=== PATIENT | male | born 1965 | race Caucasian/White ===

== ENCOUNTER 2018-09-08 18:32 | Emergency (ER) | payer BC ==
[2018-09-08] MEDS ORDERED: ONDANSETRON 4 MG/2 ML VIAL ONE (19:33)
[2018-09-08] MEDS ORDERED: DICYCLOMINE HCL 10 MG CAP ONE (19:33)
[2018-09-08] MEDS ORDERED: MORPHINE 4 MG/ML SYR ONE ×2 (19:33→21:59)
[2018-09-08] MEDS ORDERED: NA CHLORIDE 0.9% 1,000 ML ONE (19:33)
[2018-09-08 19:58] LABS: Absolute Lymphocytes (CBC) 1.3 K/uL (0.7-4.9); Absolute Neutrophil 6.2 K/uL (1.8-8.0); Basophils % 0.7 % (0-1.3); Eosinophils % 2.7 % (0-4.4); Hematocrit 51.9 % (39.6-49.0); Lymphocytes % 15.1 % (15.3-44.8); MPV 7.7 fL (7.6-11.3); Monocytes % 11.3 % (3.3-12.3); RBC Red Blood Cell Count 6.26 M/uL (4.33-5.43)
[2018-09-08 21:51] LABS: ALT/SGPT 32 U/L (12-78); AST/SGOT 18 U/L (15-37); Albumin 4.1 g/dL (3.4-5.0); Alkaline Phosphatase 84 U/L (45-117); BUN Blood Urea Nitrogen 18 mg/dL (7-18); Bicarbonate 29 mmol/L (21-32); Bilirubin Direct 0.1 mg/dL (0-0.2); Bilirubin Total 0.5 mg/dL (0.2-1.0); Glucose Level 167 mg/dL (74-106); Lipase 129 U/L (73-393); Potassium 4.6 mmol/L (3.5-5.1); Protein, Total 7.6 g/dL (6.4-8.2); Sodium Level 139 mmol/L (136-145)
--- NOTE | 2018-09-09 01:04 | ER ---
Nurse's Notes [facility] Name: Dayne Stevenson Age: 53 yrs Sex: Male : 1965 Arrival Date: 09/08/2018 Time: 18:35 Bed 18 Private MD: Eyad White S Diagnosis: Diarrhea, unspecified;Lower abdominal pain, unspecified Presentation: 09/08 18:41 Presenting complaint: Patient states: I have been having left sided abd pain and la1 diarrhea for since but I have occasionally I have been "cold sweats" and I was getting lightheaded when I was having diarrhea. Transition of care: patient was not received from another setting of care. Onset of symptoms was September 08, 2018. Risk Assessment: Do you want to hurt yourself or someone else? Patient reports no desire to harm self or others. Initial Sepsis Screen: Does the patient meet any 2 criteria? No. Patient's initial sepsis screen is negative. Does the patient have a suspected source of infection? No. Patient's initial sepsis screen is negative. Care prior to arrival: None. 18:41 Method Of Arrival: Ambulatory la1 18:41 Acuity: BOB 3 la1 Historical: - Allergies: 18:43 No Known Allergies; la1 - PMHx: 18:43 "enlarged artery"; Depression; Hypertension; la1 - Immunization history:: Adult Immunizations up to date. - Social history:: Smoking status: Patient/guardian denies using tobacco. - Ebola Screening: : No symptoms or risks identified at this time. Screenin:19 Abuse screen: Denies threats or abuse. Denies injuries from another. Nutritional rr5 screening: No deficits noted. Tuberculosis screening: No symptoms or risk factors identified. Fall Risk IV access (20 points). Total Farrell Fall Scale indicates No Risk (0-24 pts). Assessment: 19:00 General: Appears in no apparent distress. comfortable, Behavior is calm, cooperative, rr5 appropriate for age. Pain: Complains of pain in lower abdomen Pain does not radiate. Pain currently is 6 out of 10 on a pain scale. Quality of pain is described as aching, Pain began gradually, Is intermittent. Neuro: Level of Consciousness is awake, alert, obeys commands, Oriented to person, place, time, situation, Appropriate for age Reports episodes of light headedness. Cardiovascular: Capillary refill < 3 seconds Patient's skin is warm and dry. Respiratory: Airway is patent Respiratory effort is even, unlabored, Respiratory pattern is regular, symmetrical. GI: Bowel sounds present X 4 quads. Abd is soft and non tender Reports lower abdominal pain, diarrhea. : No signs and/or symptoms were reported regarding the genitourinary system. EENT: No signs and/or symptoms were reported regarding the EENT system. Derm: Skin is intact, Skin temperature is warm. Musculoskeletal: Capillary refill < 3 seconds, Range of motion: intact in all extremities. 20:00 Reassessment: Patient appears in no apparent distress at this time. No changes from rr5 previously documented assessment. Patient is alert, oriented x 3, equal unlabored respirations, skin warm/dry/pink. 21:00 Reassessment: Patient appears in no apparent distress at this time. Patient is alert, rr5 oriented x 3, equal unlabored respirations, skin warm/dry/pink. awaiting for laboratory reports. Patient states symptoms have improved. 21:40 Reassessment: Patient appears in no apparent distress at this time. Patient and/or rr5 family updated on plan of care and expected duration. Pain level reassessed. Patient is alert, oriented x 3, equal unlabored respirations, skin warm/dry/pink. complaining of back pain. ED provider aware with order made and carried out. Patient states symptoms have improved. 23:50 Reassessment: Patient appears in no apparent distress at this time. Patient is alert, rr5 oriented x 3, equal unlabored respirations, skin warm/dry/pink. awaiting for CT scan report Patient states feeling better. Patient states symptoms have improved. 09/09 00:50 Reassessment: Patient appears in no apparent distress at this time. no complaints made. rr5 Patient states feeling better. Patient states symptoms have improved. 01:49 Reassessment: Patient appears in no apparent distress at this time. Patient and/or rr5 family updated on plan of care and expected duration. Pain level reassessed. Patient is alert, oriented x 3, equal unlabored respirations, skin warm/dry/pink. discharge instruction given and explained without complaints made. Patient denies pain at this time. Patient states feeling better. Patient states symptoms have improved. Reassessment: Patient appears in no apparent distress at this time. Patient is alert, oriented x 3, equal unlabored respirations, skin warm/dry/pink. Vital Signs: 09/08 18:43 BP 154 / 92; Pulse 85; Resp 18; Temp 97.4; Pulse Ox 98% on R/A; Weight 158.76 kg; la1 Height 5 ft. 10 in. (177.80 cm); 19:15 BP 146 / 105; Pulse 82; Resp 16; Pulse Ox 96% ; rr5 20:00 BP 141 / 70; Pulse 90; Resp 17; Pulse Ox 99% ; rr5 21:00 BP 131 / 87; Pulse 85; Resp 19; Pulse Ox 100% ; rr5 22:00 BP 135 / 92; Pulse 95; Resp 19; Temp 98; Pulse Ox 100% ; rr5 23:00 BP 133 / 65; Pulse 90; Resp 17; Pulse Ox 99% ; rr5 09/09 00:00 BP 136 / 79; Pulse 86; Resp 19; Pulse Ox 99% ; rr5 01:15 BP 142 / 70; Pulse 82; Resp 17; Pulse Ox 99% ; rr5 09/08 18:43 Body Mass Index 50.22 (158.76 kg, 177.80 cm) la1 ED Course: 09/08 18:35 Patient arrived in ED. mr 18:35 Eyad White MD is Private Physician. mr 18:43 Triage completed. la1 18:43 Arm band placed on left wrist. la1 18:45 Arnav Davalos PA is PHCP. jmm 18:45 Rodney Sterling MD is Attending Physician. jmm 19:00 Patient has correct armband on for positive identification. Placed in gown. Bed in low rr5 position. Call light in reach. Side rails up X2. 19:29 Jorge Matos, RN is Primary Nurse. rr5 19:40 Inserted saline lock: 20 gauge in right forearm, using aseptic technique. rr5 20:13 Radiology exam delayed due to lab results not completed at this time. (BUN/Creatinine). kw1 22:10 PHCP role handed off by Arnav Davalos PA snw 22:10 Erlinda Garay FNP-C is PHCP. snw 22:19 CT Abd/Pelvis - W/Contrast In Process Unspecified. EDMS 22:23 CT completed. Patient tolerated procedure well. Patient moved back from CT. kw1 09/09 01:02 Eyad White MD is Referral Physician. snw 01:45 No provider procedures requiring assistance completed. IV discontinued, intact, rr5 bleeding controlled, No redness/swelling at site. Pressure dressing applied. Administered Medications: 09/08 19:30 Drug: Bentyl 20 mg Route: PO; rr5 09/09 01:45 Follow up: Response: No adverse reaction rr5 09/08 19:40 Drug: NS 0.9% 1000 ml Route: IV; Rate: 1 bolus; Site: right forearm; rr5 21:00 Follow up: Response: No adverse reaction; IV Status: Completed infusion; IV Intake: rr5 1000ml 19:45 Drug: Zofran 4 mg Route: IVP; Site: right forearm; rr5 09/09 01:45 Follow up: Response: No adverse reaction rr5 09/08 19:47 Drug: morphine 2 mg Route: IVP; Site: right forearm; rr5 09/09 01:45 Follow up: Response: No adverse reaction rr5 09/08 21:55 Drug: morphine 4 mg Route: IVP; Site: right antecubital; rr5 09/09 01:45 Follow up: Response: No adverse reaction rr5 01:10 Drug: Ativan 1 mg Route: PO; rr5 01:45 Follow up: Response: No adverse reaction; Medication administered at discharge. rr5 Intake: 09/08 21:00 IV: 1000ml; Total: 1000ml. rr5 Outcome: 09/09 01:03 Discharge ordered by . snw 01:51 Discharged to home ambulatory. rr5 01:51 Condition: stable 01:51 Discharge instructions given to patient, family, Instructed on discharge instructions, follow up and referral plans. no driving heavy equipment, Demonstrated understanding of instructions, follow-up care, medications, Prescriptions given X 3. 01:52 Patient left the ED. rr5 Signatures: Dispatcher [employer] EDMS Erlinda Garay, [employer]-Arnav Pierce PA PA jmm Rivera, Mary mr Attema, Lee, RN RN [email or web address] Deirdre Ashley kw1 Jorge Matos, RN RN rr5
--- NOTE | 2018-09-09 01:04 | EDPHYS ---
Physician Documentation [facility] Name: Dayne Stevenson Age: 53 yrs Sex: Male : 1965 Arrival Date: 09/08/2018 Time: 18:35 Bed 18 Private MD: Eyad White S ED Physician Rodney Sterling HPI: 09/08 19:16 This 53 yrs old Male presents to ER via Ambulatory with complaints of jmm Abdominal Pain. 19:16 The patient presents with abdominal pain that is diffuse. Onset: The symptoms/episode jmm began/occurred gradually, 3 day(s) ago. Associated signs and symptoms: Pertinent positives: nausea, diarrhea. Modifying factors: The symptoms are alleviated by nothing, the symptoms are aggravated by spicy food, energy drinks. The patient has experienced a previous episode. This is a 53 year old male with a history of htn, that presents to the ED with complaints of abdominal pain, diarrhea beginning approx 3 days ago. Patient states symptoms worsened today. . Historical: - Allergies: 18:43 No Known Allergies; la1 - PMHx: 18:43 "enlarged artery"; Depression; Hypertension; la1 - Immunization history:: Adult Immunizations up to date. - Social history:: Smoking status: Patient/guardian denies using tobacco. - Ebola Screening: : No symptoms or risks identified at this time. ROS: 19:16 Constitutional: Negative for fever, chills, and weight loss, Cardiovascular: Negative jmm for chest pain, palpitations, and edema, Respiratory: Negative for shortness of breath, cough, wheezing, and pleuritic chest pain. 19:16 Abdomen/GI: Positive for abdominal pain, nausea, diarrhea. 19:16 All other systems are negative. Exam: 19:16 Constitutional: This is a well developed, well nourished patient who is awake, alert, jmm and in no acute distress. Head/Face: atraumatic. Eyes: EOMI, no conjunctival erythema appreciated ENT: Moist Mucus Membranes Neck: Trachea midline, Supple Chest/axilla: Normal chest wall appearance and motion. Cardiovascular: Regular rate and rhythm. No edema appreciated Respiratory: Normal respirations, no respiratory distress appreciated 19:16 Abdomen/GI: Inspection: obese Bowel sounds: normal, Palpation: soft, mild abdominal tenderness, in the right upper quadrant, left upper quadrant, right lower quadrant and left lower quadrant. 19:16 Back: ROM is normal. 19:16 Musculoskeletal/extremity: ROM: intact in all extremities. 19:16 Skin: Appearance: Color: normal in color. 19:16 Neuro: Orientation: is normal, Mentation: is normal, Memory: is normal, Gait: is steady. 19:16 Psych: Behavior/mood is pleasant, cooperative. Vital Signs: 18:43 BP 154 / 92; Pulse 85; Resp 18; Temp 97.4; Pulse Ox 98% on R/A; Weight 158.76 kg; la1 Height 5 ft. 10 in. (177.80 cm); 19:15 BP 146 / 105; Pulse 82; Resp 16; Pulse Ox 96% ; rr5 20:00 BP 141 / 70; Pulse 90; Resp 17; Pulse Ox 99% ; rr5 21:00 BP 131 / 87; Pulse 85; Resp 19; Pulse Ox 100% ; rr5 22:00 BP 135 / 92; Pulse 95; Resp 19; Temp 98; Pulse Ox 100% ; rr5 23:00 BP 133 / 65; Pulse 90; Resp 17; Pulse Ox 99% ; rr5 09/09 00:00 BP 136 / 79; Pulse 86; Resp 19; Pulse Ox 99% ; rr5 01:15 BP 142 / 70; Pulse 82; Resp 17; Pulse Ox 99% ; rr5 09/08 18:43 Body Mass Index 50.22 (158.76 kg, 177.80 cm) la1 MDM: 09/08 19:16 Patient medically screened. [facility] 21:57 Data reviewed: vital signs, nurses notes, lab test result(s). Transition of care: After [facility] a detail discussion of the patient's case, care is transferred to Erlinda Garay [facility]. 09/08 19:17 Order name: Basic Metabolic Panel; Complete Time: 21:52 [facility] 09/08 19:17 Order name: CBC with Diff; Complete Time: 20:16 [facility] 09/08 19:17 Order name: Creatinine for Radiology; Complete Time: 21:50 [facility] 09/08 19:17 Order name: Hepatic Function; Complete Time: 21:52 [facility] 09/08 19:17 Order name: Lipase; Complete Time: 21:52 [facility] 09/08 19:19 Order name: CT Abd/Pelvis - W/Contrast [facility] 09/08 19:17 Order name: IV Saline Lock; Complete Time: 19:54 [facility] 09/08 19:17 Order name: Labs collected and sent; Complete Time: 19:54 [facility] Administered Medications: 19:30 Drug: Bentyl 20 mg Route: PO; 5 09/09 01:45 Follow up: Response: No adverse reaction [facility] 09/08 19:40 Drug: NS 0.9% 1000 ml Route: IV; Rate: 1 bolus; Site: right forearm; rr5 21:00 Follow up: Response: No adverse reaction; IV Status: Completed infusion; IV Intake: rr5 1000ml 19:45 Drug: Zofran 4 mg Route: IVP; Site: right forearm; rr5 09/09 01:45 Follow up: Response: No adverse reaction [facility] 09/08 19:47 Drug: morphine 2 mg Route: IVP; Site: right forearm; rr5 09/09 01:45 Follow up: Response: No adverse reaction 5 09/08 21:55 Drug: morphine 4 mg Route: IVP; Site: right antecubital; rr5 09/09 01:45 Follow up: Response: No adverse reaction rr5 01:10 Drug: Ativan 1 mg Route: PO; rr5 01:45 Follow up: Response: No adverse reaction; Medication administered at discharge. rr5 Disposition: 09/09/18 01:03 Discharged to Home. Impression: Diarrhea, unspecified, Lower abdominal pain, unspecified. - Condition is Stable. - Discharge Instructions: Abdominal Pain, Adult, Food Choices to Help Relieve Diarrhea, Adult, Diarrhea, Adult, Hypertension. - Prescriptions for Bentyl 20 mg Oral Tablet - take 1 tablet by ORAL route every 6 hours As needed; 20 tablet. Diclofenac Sodium 75 mg Oral Tablet Sustained Release - take 1 tablet by ORAL route 2 times per day; 30 tablet. Gas- X Ultra-Strength - take 1 unit by ORAL route 3 times per day As needed; 1 box. - Medication Reconciliation Form, Thank You Letter, Antibiotic Education, Prescription Opioid Use form. - Follow up: Eyad White MD; When: 2 - 3 days; Reason: Recheck today's complaints, Continuance of care, Re-evaluation by your physician. Follow up: Emergency Department; When: As needed; Reason: Worsening of condition. Addendum: 09/10/2018 19:59 Co-signature as Attending Physician, Rodney Sterling MD. r n Signatures: Dispatcher [employer] EDSaul Marquez MD MD cha Therrien, Shelly, HEL[employer] CUTTER-C HEL[employer] BRIM CUTTER-Csnw Arnav Davalos PA PA jmm Nieto, Roman, MD MD rn Ani, Gabe, RN RN la1 Jorge Matos RN RN rr5 Corrections: (The following items were deleted from the chart) 09/09 01:52 01:03 09/09/2018 01:03 Discharged to Home. Impression: Diarrhea, unspecified; Lower rr5 abdominal pain, unspecified. Condition is Stable. Forms are Medication Reconciliation Form, Thank You Letter, Antibiotic Education, Prescription Opioid Use. Follow up: Eyad White; When: 2 - 3 days; Reason: Recheck today's complaints, Continuance of care, Re-evaluation by your physician. Follow up: Emergency Department; When: As needed; Reason: Worsening of condition. snw
[2018-09-09] MEDS ORDERED: LORAZEPAM 1 MG TABLET ONE (01:37)
--- NOTE | 2018-09-09 09:15 | RAD REPORT ---
EXAM DESCRIPTION: CTAbdomen Pelvis W Contrast - 09/08/2018 10:19 pm CLINICAL HISTORY: Abdominal pain. abdominal pain, IV ONLY COMPARISON: Abdomen Pelvis W Contrast dated 10/22/2017 TECHNIQUE: Biphasic CT imaging of the abdomen and pelvis was performed with 100 ml non-ionic IV cont rast. All CT scans are performed using dose optimization technique as appropriate and may include automated exposure control or mA/KV adjustment according to patient size. FINDINGS: The lung bases are clear. The liver demonstrates fatty infiltration mild hepatomegaly. The spleen, pancreas, adrenal glands and kidneys are within normal limits. No bowel obstruction, free air, free fluid or abscess. Small fat containing inguinal hernia. The appe ndix is normal. No evidence of significant lymphadenopathy. No suspicious bony findings. IMPRESSION: Diffuse fatty liver.
== END 2018-09-09 01:52 | disposition home or self-care (01) ==
LOC: ER 18:32
DX: R19.7 Diarrhea, unspecified (principal); I10 Essential (primary) hypertension
CPT/HCPCS: 36415; 74177; 80048; 80076; 83690; 85025; 99284; J2405; J7030; Q9967

== ENCOUNTER 2021-05-12 20:38 | Emergency (ER) | payer BC ==
[2021-05-12 22:22] LABS: SARS-COV-2 RT PCR NEGATIVE (NEGATIVE)
--- NOTE | 2021-05-12 22:57 | ER ---
Nurse's Notes [facility] Name: Dayne Stevenson Age: 56 yrs Sex: Male : 1965 Arrival Date: 05/12/2021 Time: 20:44 Bed 12 Private MD: Diagnosis: Encounter for screening for other [id number] test Presentation: 05/12 21:23 Chief complaint: Patient states: Today sudden onset of feeling tired, diarrhea x1, vg1 headache, and cough. Also states chest pain/tightness. Denies NV. Pt states 'I just want to get a Covid test done and that's it, I dont want to be hooked up to wires". Coronavirus screen: Vaccine status: Patient reports receiving the 2nd dose of the covid vaccine. Client presents with at least one sign or symptom that may indicate coronavirus-19. Standard/surgical mask placed on the client. Ebola Screen: Patient negative for fever greater than or equal to 101.5 degrees Fahrenheit, and additional compatible Ebola Virus Disease symptoms. Initial Sepsis Screen: Does the patient meet any 2 criteria? No. Patient's initial sepsis screen is negative. Does the patient have a suspected source of infection? No. Patient's initial sepsis screen is negative. Risk Assessment: Do you want to hurt yourself or someone else? Patient reports no desire to harm self or others. Onset of symptoms was May 12, 2021. 21:23 Method Of Arrival: Ambulatory vg1 21:23 Acuity: BOB 4 vg1 Triage Assessment: 21:31 General: Appears in no apparent distress. comfortable, Behavior is calm, cooperative. vg1 Pain: Denies pain. Cardiovascular: No deficits noted. Historical: - Allergies: 21:31 No Known Allergies; vg1 - Home Meds: 21:31 aspirin 81 mg Oral chew 1 tab once daily [Active]; Metformin Oral [Active]; losartan vg1 100 mg Oral tab 1 tab once daily [Active]; metoprolol tartrate 25 mg Oral tab 1 tab once daily [Active]; Zoloft 150 mg Oral tab 1 tab once daily [Active]; atorvastatin oral [Active]; - PMHx: 21:31 "enlarged artery"; Depression; Hypertension; vg1 - Immunization history:: Adult Immunizations up to date, Client reports receiving the 2nd dose of the Covid vaccine. - Social history:: Smoking status: Patient denies any tobacco usage or history of. Screenin:30 Abuse screen: Denies threats or abuse. Nutritional screening: No deficits noted. cc4 Tuberculosis screening: No symptoms or risk factors identified. Fall Risk None identified. Assessment: 22:30 Pain: Pain began 2-3 days ago. States, "It's not pain, just a different feeling like cc4 tightness in my upper chest"; NADN. 22:30 Pain: Pain does not radiate. cc4 Vital Signs: 21:23 BP 135 / 74; Pulse 70; Resp 18; Temp 97.2; Pulse Ox 96% ; Weight 158.76 kg; Height 5 vg1 ft. 10 in. (177.80 cm); Pain 0/10; 22:50 BP 119 / 56; Pulse 83; Resp 20; Temp 98.8; Pulse Ox 99% on R/A; cc4 21:23 Body Mass Index 50.22 (158.76 kg, 177.80 cm) vg1 ED Course: 20:44 Patient arrived in ED. cf2 21:31 Triage completed. vg1 21:31 Arm band placed on. vg1 21:36 COVID swab sent to lab. Flu and/or RSV swab sent to lab. vg1 22:30 Refused monitoring; states, "It's not my heart", "I just want to know if I have Covid". cc4 22:30 Patient has correct armband on for positive identification. Sitting in bedside chair; cc4 NADN. 22:30 No provider procedures requiring assistance completed. cc4 22:30 Patient maintains SpO2 saturation greater than 95% on room air. O2 via O2 sat 99% RA. cc4 22:44 Saul Amor PA is PHCP. cp 22:45 Jorge L Cheema MD is Attending Physician. cp 22:50 Patient did not have IV access during this emergency room visit. cc4 Administered Medications: No medications were administered Outcome: 22:50 Discharged to home ambulatory. cc4 22:50 Condition: good 22:50 Discharge instructions given to patient, Instructed on discharge instructions, follow up and referral plans. Demonstrated understanding of instructions, follow-up care. 22:56 Discharge ordered by . cp 23:21 Patient left the ED. sj1 Signatures: Page, SaulMEJIA wood cp, Celesta cf2 Sary Ortiz, RN RN vg1 Lori David, RN RN cc4 Jess Gamez, RN RN sj1
--- NOTE | 2021-05-12 22:57 | EDPHYS ---
Physician Documentation [facility] Name: Dayne Stevenson Age: 56 yrs Sex: Male : 1965 Arrival Date: 05/12/2021 Time: 20:44 Bed 12 Private MD: ED Physician Jorge L Cheema HPI: 05/12 22:53 This 56 yrs old Male presents to ER via Ambulatory with complaints of Chest cp Pain, CHEST TIGHTNESS, Diarrhea. 22:53 The patient or guardian reports tickle in the throat, nasal drainage. Onset: The cp symptoms/episode began/occurred today. Associated signs and symptoms: Pertinent positives: 1 episode of diarrhea, Pertinent negatives: fever, sore throat, cough. Severity of symptoms: in the emergency department the symptoms have resolved and did so while in waiting room. Historical: - Allergies: 21:31 No Known Allergies; vg1 - Home Meds: 21:31 aspirin 81 mg Oral chew 1 tab once daily [Active]; Metformin Oral [Active]; losartan vg1 100 mg Oral tab 1 tab once daily [Active]; metoprolol tartrate 25 mg Oral tab 1 tab once daily [Active]; Zoloft 150 mg Oral tab 1 tab once daily [Active]; atorvastatin oral [Active]; - PMHx: 21:31 "enlarged artery"; Depression; Hypertension; vg1 - Immunization history:: Adult Immunizations up to date, Client reports receiving the 2nd dose of the Covid vaccine. - Social history:: Smoking status: Patient denies any tobacco usage or history of. ROS: 22:55 Constitutional: Negative for body aches, fever, poor PO intake. cp 22:55 Eyes: Negative for injury, pain, redness, and discharge. cp 22:55 ENT: Negative for ear pain, sore throat, difficulty swallowing, difficulty handling secretions. 22:55 Cardiovascular: Positive for chest pain, Negative for edema, palpitations. 22:55 Respiratory: Positive for cough, Negative for shortness of breath, wheezing. 22:55 Abdomen/GI: Positive for diarrhea, Negative for abdominal pain, vomiting, constipation. 22:55 Neuro: Positive for headache, Negative for altered mental status, numbness, weakness. 22:55 All other systems are negative. Exam: 22:55 Head/Face: Normocephalic, atraumatic. cp 22:55 Constitutional: The patient appears in no acute distress, alert, awake, non-toxic, well developed, well nourished, obese. 22:55 Eyes: Periorbital structures: appear normal, Conjunctiva: normal, no exudate, no injection, Sclera: no appreciated abnormality, Lids and lashes: appear normal, bilaterally. 22:55 ENT: External ear(s): are unremarkable, Ear canal(s): are normal, clear, TM's: dullness, bilaterally, Nose: is normal, Mouth: Lips: moist, Oral mucosa: moist, Posterior pharynx: Airway: no evidence of obstruction, patent, Tonsils: are normal in appearance. 22:55 Neck: Lymph nodes: no appreciated lymphadenopathy. 22:55 Chest/axilla: Inspection: normal, Palpation: is normal, no crepitus, no tenderness. 22:55 Cardiovascular: Rate: normal, Rhythm: regular. 22:55 Respiratory: the patient does not display signs of respiratory distress, Respirations: normal, no use of accessory muscles, no retractions, labored breathing, is not present, Breath sounds: are clear throughout, no decreased breath sounds, no stridor, no wheezing. 22:55 Abdomen/GI: Inspection: abdomen appears normal, Palpation: abdomen is soft and non-tender, in all quadrants. Vital Signs: 21:23 BP 135 / 74; Pulse 70; Resp 18; Temp 97.2; Pulse Ox 96% ; Weight 158.76 kg; Height 5 vg1 ft. 10 in. (177.80 cm); Pain 0/10; 22:50 BP 119 / 56; Pulse 83; Resp 20; Temp 98.8; Pulse Ox 99% on R/A; cc4 21:23 Body Mass Index 50.22 (158.76 kg, 177.80 cm) vg1 MDM: 22:53 Patient medically screened. cp 22:54 Differential diagnosis: bronchitis, flu, URI, COVID-19. cp 22:55 Antibiotic administration: Not indicated. Data reviewed: vital signs, nurses notes, lab cp test result(s), and as a result, I will discharge patient. Counseling: I had a detailed discussion with the patient and/or guardian regarding: the historical points, exam findings, and any diagnostic results supporting the discharge/admit diagnosis, lab results, to return to the emergency department if symptoms worsen or persist or if there are any questions or concerns that arise at home. 22:56 ED course: Patient requests just testing for COVID. Patient informed test negative. cp Will discharge to home for continued monitoring. 05/12 22:23 Order name: COVID-19/FLU A+B; Complete Time: 22:54 EDMS Administered Medications: No medications were administered Disposition Summary: 05/12/21 22:56 Discharge Ordered Location: Home cp Problem: new cp Symptoms: have improved cp Condition: Stable cp Diagnosis - Encounter for screening for other disorder - COVID-19 test cp Followup: cp - With: Private Physician - When: 2 - 3 days - Reason: Worsening of condition Discharge Instructions: - Discharge Summary Sheet cp - COVID-19: What Your Test Results Mean - [facility] cp - COVID-19 Frequently Asked Questions cp - Things to Know about the COVID-19 Pandemic - [facility] cp - COVID-19: Quarantine vs. Isolation - [facility] cp Forms: - Medication Reconciliation Form cp - Thank You Letter cp - Antibiotic Education cp - Prescription Opioid Use cp Signatures: Dispatcher [employer] EDMS Saul Amor PA PA cp Sary Ortiz, RN RN vg1 Corrections: (The following items were deleted from the chart) 21:44 21:35 CORONAVIRUS+MR.LAB.BRZ ordered. EDMS EDMS 21:44 21:35 Influenza Screen (A \\T\\ B)+BA.LAB.BRZ ordered. EDMS EDMS
[2021-05-12 23:25] VITALS: BP 135/74; TEMP 97.2; O2SAT 96
== END 2021-05-12 23:21 | disposition home or self-care (01) ==
LOC: ER 20:38
DX: Z20.822 Contact with and (suspected) exposure to COVID-19 (principal)
CPT/HCPCS: 0240U; 99284